=== PATIENT | female | born 1955 | race Caucasian/White ===

== ENCOUNTER 2022-10-08 03:56 | Emergency (ER) | payer MEDICARE ==
[~2022-10-08] VITALS: Ht 170.2 cm; Wt 87.0 kg
[2022-10-08 04:15] VITALS: BP 130/55
[2022-10-08] MEDS ORDERED: LOSARTAN POTASS50 MG PO (04:20)
[2022-10-08] MEDS ORDERED: HYDROCHLOROT12.5 M1 PO (04:20)
[2022-10-08] MEDS ORDERED: OMEPRAZOLE20 MG PO (04:21)
[2022-10-08] MEDS ORDERED: SIMVASTATIN10 MG PO (04:21)
[2022-10-08] MEDS ORDERED: FENOFIBRATE145 MG PO (04:21)
[2022-10-08] MEDS ORDERED: ESCITALOPRAM OX10 MG PO (04:22)
[2022-10-08 04:35] LABS: URINE BLOOD DIPSTICK TRACE-INTACT (NEGATIVE); URINE COLOR YELLOW; URINE GLUCOSE - DIPSTICK NEGATIVE (NEGATIVE); URINE KETONE TRACE mg/dL (NEGATIVE); URINE LEUK ESTERASE NEGATIVE (NEGATIVE); URINE PH 5.5 (4.5-8.0); URINE PROTEIN - DIPSTICK 30 mg/dL (NEG-TRACE); URINE SPECIFIC GRAVITY 1.025
[2022-10-08 04:39] LABS: URINE BILIRUBIN - DIPSTICK SMALL (NEGATIVE); URINE NITRITE - DIPSTICK NEGATIVE (Negative)
[2022-10-08 04:41] LABS: BASO% 0.5 % (0-3); EOS% 0.2 % (0-8); HEMATOCRIT 42.6 % (37.0-47.0); HEMOGLOBIN 14.5 g/dl (12.0-16.0); IMMATURE GRANULOCYTES 0.5 % (0.0-5.0); LYMPH% 14.5 % (15-41); MEAN CELL VOLUME 88.2 fL CALC (80.0-100.0); MONO% 11.3 % (2-13); NEUT# 4.6 thou/uL (2.00-7.15); RED BLOOD COUNT 4.83 mill/uL (4.20-5.60); RED CELL DISTRI WIDTH 12.9 % (11.5-15.5)
[2022-10-08 04:50] LABS: URINE RBC 0-2 RBC/hpf (0-5); URINE SQUAMOUS EPITHELIAL CELL FEW EPI/hpf (0-FEW)
[2022-10-08 05:00] LABS: ALBUMIN 4.3 g/dL (3.2-5.0); ALKALINE PHOSPHATASE 56 u/l (38-126); BILIRUBIN, TOTAL 0.5 mg/dL (0.02-1.3); BUN 9 mg/dL (8-23); BUN/CREATININE RATIO 11 (12-20 (CALC)); CARBON DIOXIDE 30 mmol/l (22-30); CHLORIDE 100 mmol/l (95-108); CREATININE 0.8 mg/dL (0.5-1.0); GFR FOR AFR.AMER. > 60 ML/MIN (>=60 (CALC)); GFR OTHER RACES > 60 ML/MIN (>=60 (CALC)); LIPASE 47 u/l (23-300); MAGNESIUM 1.8 mg/dL (1.6-2.3); SGOT/AST 33 u/l (9-36); SODIUM 136 mmol/l (137-146); TOTAL PROTEIN 7.6 g/dL (6.3-8.2)
[2022-10-08 05:05] LABS: ANION GAP 8 (6-22 (CALC)); POTASSIUM 2.4 mmol/l (3.5-5.1)
[2022-10-08] MEDS ORDERED: POTASSIUM CHLO20 ME1 PO (06:15)
[2022-10-08] MEDS ORDERED: PROMETHAZINE HY25 M1 PO (06:15)
[2022-10-08 06:31] VITALS: BP 130/55
== END 2022-10-08 06:32 | disposition home or self-care (01) ==
LOC: ED 03:56
PROVIDERS: Family Medicine
DX: A08.4 Viral intestinal infection, unspecified (principal); E87.6 Hypokalemia; I10 Essential (primary) hypertension; F17.210 Nicotine dependence, cigarettes, uncomplicated; Z20.822 Contact with and (suspected) exposure to COVID-19

== ENCOUNTER 2022-10-12 23:58 | Emergency (ER) | payer MEDICARE ==
[~2022-10-12] VITALS: Ht 170.2 cm; Wt 85.0 kg
[~2022-10-12 23:58] MED LIST: ESCITALOPRAM OX10 MG PO; FENOFIBRATE145 MG PO; HYDROCHLOROT12.5 M1 PO; LOSARTAN POTASS50 MG PO; OMEPRAZOLE20 MG PO; POTASSIUM CHLO20 ME1 PO; PROMETHAZINE HY25 M1 PO; SIMVASTATIN10 MG PO
[2022-10-13] VITALS (10 sets, daily range): BP systolic 116–153; BP diastolic 53–94
[2022-10-13 02:01] LABS: BASO% 0.5 % (0-3); EOS% 1.7 % (0-8); HEMATOCRIT 40.9 % (37.0-47.0); HEMOGLOBIN 13.9 g/dl (12.0-16.0); IMMATURE GRANULOCYTES 0.7 % (0.0-5.0); LYMPH% 27.5 % (15-41); MEAN CELL VOLUME 89.7 fL CALC (80.0-100.0); MEAN CORPUSCULAR HGB 30.5 pG CALC (26.0-32.0); MONO% 10.5 % (2-13); NEUT# 4.79 thou/uL (2.00-7.15); NEUT% 59.1 % (42-76); RED BLOOD COUNT 4.56 mill/uL (4.20-5.60); RED CELL DISTRI WIDTH 12.9 % (11.5-15.5)
[2022-10-13 02:31] LABS: ALBUMIN 4.2 g/dL (3.2-5.0); ALKALINE PHOSPHATASE 64 u/l (38-126); ANION GAP 11 (6-22 (CALC)); BUN 10 mg/dL (8-23); BUN/CREATININE RATIO 14 (12-20 (CALC)); CARBON DIOXIDE 28 mmol/l (22-30); CHLORIDE 104 mmol/l (95-108); CREATININE 0.7 mg/dL (0.5-1.0); GFR FOR AFR.AMER. > 60 ML/MIN (>=60 (CALC)); GFR OTHER RACES > 60 ML/MIN (>=60 (CALC)); POTASSIUM 3.7 mmol/l (3.5-5.1); SGOT/AST 32 u/l (9-36); SODIUM 138 mmol/l (137-146)
[2022-10-13 02:32] LABS: BILIRUBIN, TOTAL 0.5 mg/dL (0.02-1.3)
[2022-10-13] MEDS ORDERED: ZITHROMAX250 MG PO (03:27)
[2022-10-13] MEDS ORDERED: MEDDOSEPAK PO (03:27)
[2022-10-13] MEDS ORDERED: FLONASE AL50 MCG/ACT (03:27)
== END 2022-10-13 03:56 | disposition home or self-care (01) ==
LOC: ED 23:58
PROVIDERS: Emergency Medicine
DX: J06.9 Acute upper respiratory infection, unspecified (principal); I10 Essential (primary) hypertension; Z20.822 Contact with and (suspected) exposure to COVID-19

== ENCOUNTER 2023-11-02 16:08 | Emergency (ER) | payer MEDICARE ==
[~2023-11-02] VITALS: Ht 170.2 cm; Wt 87.0 kg
[~2023-11-02 16:08] MED LIST changes: +FLONASE AL50 MCG/ACT; +MEDDOSEPAK PO; +ZITHROMAX250 MG PO
[2023-11-02 16:32] VITALS: BP 128/58
[2023-11-02] MEDS ORDERED: ACETAMINOPHEN 500 MG TAB PO ONE (16:35)
[2023-11-02] MEDS ORDERED: GUAIFENESIN 600 MG/TAB PO ONE (16:35)
[2023-11-02 17:01] VITALS: BP 121/55
[2023-11-02] MEDS ORDERED: IPRATROPIUM-Albuterol 0.5MG-2.5MG/3 ML NEB ONE (17:20)
[2023-11-02] MEDS ORDERED: predniSONE 20 MG/TAB PO ONE (17:20)
[2023-11-02 17:31] VITALS: BP 149/60
[2023-11-02] MEDS ORDERED: MUCINEX1200 MG PO (18:41)
[2023-11-02] MEDS ORDERED: IPRATROPIU0.5 MG/3 M IN (18:41)
[2023-11-02] MEDS ORDERED: PREDNISONE50 MG PO (18:41)
[2023-11-02 19:02] VITALS: BP 149/60
== END 2023-11-02 19:14 | disposition home or self-care (01) ==
LOC: ED 16:08
DX: J40 Bronchitis, not specified as acute or chronic (principal); I10 Essential (primary) hypertension; E78.00 Pure hypercholesterolemia, unspecified; Z72.0 Tobacco use; Z20.822 Contact with and (suspected) exposure to COVID-19